=== PATIENT | female | born 1945 | race Caucasian/White ===

== ENCOUNTER 2017-03-27 14:42 | Observation (INO) | payer MEDICARE, OTHER ==
[2017-03-27] MEDS ORDERED: Nitrostat 0.4 MG (ED) SL ONE (15:17)
[2017-03-27] MEDS ORDERED: BABY ASPIRIN 81 MG CHEW PO ONE (15:17)
--- NOTE | 2017-03-27 15:20 | ERPHSYRPT ---
- History of Present Illness Time Seen by Provider: 03/27/17 15:00 Historian: patient Patient Subjective Stated Complaint: PT REPORTS ONSET OF UPPER BACK PAIN RADIATING TO SHOULDER CHEST ET JAW-DENIES SOB DENIES PHYSICAL EXTERSION Triage Nursing Assessment: PT PINK WARM ET [id number] EASY ET NONLABORED- SPEAKING IN COMPLETE SENTENCES Physician History: PATIENT WITH A HISTORY OF HYPERTENSION, FIBROMYALGIA AND RENAL INSUFFICIENCY COMPLAINS OF SEVERE SHARP PAINS BETWEEN SHOULDER BLADES PRIOR TO EMERGENCY ARRIVAL. STATES PAIN 7/10 SHARP IN CHARACTER RADIATES TO FRONT OF CHEST AND TO LEFT SHOULDER. DENIES DYSPNEA, DIAPHORESIS AND PALPITATIONS. Timing/Duration: today Activities at Onset: none Quality: sharpness, stabbing Location: back Chest Pain Radiation: jaw, arm Severity of Pain-Max: severe Severity of Pain-Current: mild Modifying Factors: Improves With: nothing Associated Symptoms: palpitations Prior Chest Pain/Cardiac Workup: no prior chest pain Nitro Today/Relief: 0.4 mg x 1, provided by ED Aspirin Treatment Today: 81 mg x 4, provided by ED Allergies/Adverse Reactions: morphine Allergy (Severe, Verified 03/27/17 14:43) STOPPED BREATHING Penicillins Allergy (Intermediate, Verified 03/27/17 14:43) Rash Sulfa (Sulfonamide Antibiotics) Allergy (Intermediate, Verified 03/27/17 14:43) Rash methylprednisolone [From Medrol] Adverse Reaction (Verified 03/27/17 14:43) Vomiting artificial sweetners Allergy (Intermediate, Uncoded 03/27/17 14:43) MIGRAINES Home Medications: Lisinopril 20 mg [Zestril 20 MG] 40 mg PO HS 10/02/14 [History] Mirtazapine 30 mg [Remeron 30 mg] 15 mg PO QHS 10/02/14 [History] Omeprazole 20 MG [Prilosec 20 mg] 20 mg PO HS 10/02/14 [History] Diphenhydramine HCl [Benadryl] 50 mg PO HS 10/03/14 [History] Hydrocodone/APAP 10/325 mg [Mulberry 10/325 MG Tablet] 1 tab PO Q4HPRN PRN [History] Potassium Chloride [Klor-Con M10] 10 meq PO HS 09/09/15 [History] Tizanidine HCl [Zanaflex] 4 mg PO TID 09/14/15 [History] Amlodipine Besylate [Norvasc] 5 mg PO DAILY 09/11/16 [History] Calcium [Hi-Barrera] 250 mg PO BID 09/11/16 [History] Fluticasone Propionate [Flonase NASAL] 50 mcg NS UD PRN 09/11/16 [History] Hydrochlorothiazide 12.5 mg PO DAILY 09/11/16 [History] Pregabalin [Lyrica] 75 mg PO BID 09/11/16 [History] Naproxen 500 mg [Naprosyn 500 MG] 500 mg PO BID 03/26/17 [History] Hx Tetanus, Diphtheria Vaccination/Date Given: Yes Hx Influenza Vaccination/Date Given: No Hx Pneumococcal Vaccination/Date Given: No Immunizations Up to Date: Yes - Review of Systems Constitutional: No Fever, No Chills Eyes: No Symptoms Ears, Nose, & Throat: No Symptoms Respiratory: No Symptoms, No Cough, No Dyspnea Cardiac: Chest Pain, No Edema, No Syncope Abdominal/Gastrointestinal: No Symptoms, No Abdominal Pain, No Nausea, No Vomiting, No Diarrhea Genitourinary Symptoms: No Symptoms, No Dysuria Musculoskeletal: No Symptoms, No Back Pain, No Neck Pain Skin: No Rash Neurological: No Dizziness, No Focal Weakness, No Sensory Changes Psychological: No Symptoms Endocrine: No Symptoms All Other Systems: Reviewed and Negative - Past Medical History Pertinent Past Medical History: Yes Neurological History: Migraines ENT History: No Pertinent History Cardiac History: Hypertension Respiratory History: No Pertinent History Endocrine Medical History: No Pertinent History Musculoskeletal History: Arthritis, Other GI Medical History: GERD History: No Pertinent History Psycho-Social History: No Pertinent History Female Reproductive Disorders: Uterine Cancer Other Medical History: 2back surgeries - Past Surgical History Past Surgical History: Yes Neuro Surgical History: No Pertinent History Cardiac: No Pertinent History Respiratory: No Pertinent History Gastrointestinal: No Pertinent History Genitourinary: No Pertinent History Musculoskeletal: Other Female Surgical History: Hysterectomy, Tubal Ligation Other Surgical History: back surgery x 2, carpel tunnel - Social History Smoking Status: Never smoker Exposure to second hand smoke: No Drug Use: none Patient Lives Alone: No - Female History Hx Now: No - Nursing Vital Signs Nursing Vital Signs: Initial Vital Signs Temperature 98.6 F 03/27/17 15:02 Pulse Rate 75 03/27/17 15:02 Respiratory Rate 20 03/27/17 15:02 Blood Pressure 132/92 03/27/17 15:02 O2 Sat by Pulse Oximetry 97 03/27/17 15:02 Pain Scale Pain Intensity 4 - Physical Exam General Appearance: no apparent distress, alert Eye Exam: PERRL/EOMI, eyes nml inspection Ears, Nose, Throat Exam: normal ENT inspection, moist mucous membranes Neck Exam: normal inspection, non-tender, supple, full range of motion Respiratory Exam: normal breath sounds, lungs clear, No respiratory distress Cardiovascular Exam: regular rate/rhythm, normal heart sounds Gastrointestinal/Abdomen Exam: soft, No tenderness, No mass Back Exam: normal inspection, No CVA tenderness, No vertebral tenderness Extremity Exam: normal inspection, normal range of motion Neurologic Exam: alert, oriented x 3, cooperative, normal mood/affect, sensation nml, No motor deficits Skin Exam: normal color, warm, dry SpO2 Interpretation: normal SpO2: 97 Oxygen Delivery: Room Air - Course EKG Interpreted by Me: RATE, NORMAL AXIS, Non-specific ST Changes (MINIMAL ANTERIOR SEPTAL NEW SINCE 10/05/2015, ), Other (REPEAT EKG NORMAL SINUS RHYTHM 1ST AVB WITH MINIMAL ST SEGMENT DEPRSSION) - CT Exams Chest CT Interpretation: Discussed w/radiologist (NO SUSPICIOUS PULMONARY MASS , INFILTRATE OR EFFUSION. AORTA IS MILDLY ARTERIOSCLEROTIC WITHOUT ANERYSYMAL DILATATION. THERE IS MINIMAL BILATERAL UPPER LOBE PULMONARY EMPHYSEMA, MILD BIBASILAR FIBROSIS/SCARRING) Ordered Tests: Active Orders 24 hr Category Date Time Status Up With Assistance ROUTINE Activity 03/27/17 18:42 Active Admission/Status Order ROUTINE Care 03/27/17 18:40 Active Call Admit Doctor for Orders ROUTINE Care 03/27/17 18:40 Active Photogrammetry Airplane Pilot STAT Care 03/27/17 15:18 Active Code Status Order ROUTINE Care 03/27/17 18:40 Active EKG-ER Only STAT Care 03/27/17 15:17 Active EKG-ER Only STAT Care 03/27/17 16:50 Active IV Care Q6H Care 03/27/17 18:40 Active IV Insertion STAT Care 03/27/17 15:17 Active Implement Chest Pain Pathway ROUTINE Care 03/27/17 18:40 Active Oxygen-ED Only NASAL CANNULA 2 lpm Care 03/27/17 15:17 Active Mauro Marr, Apply ROUTINE Care 03/27/17 18:40 Active Telemetry ROUTINE Care 03/27/17 18:40 Ordered Weight,Daily 0600 Care 03/27/17 18:40 Ordered Cardiac Diet Diet 03/27/17 Breakfast Active CHEST WITHOUT CONTRAST [CT] Stat Exams 03/27/17 15:18 Completed CBC W DIFF Stat Lab 03/27/17 15:00 Completed CMP Stat Lab 03/27/17 15:00 Completed LIPID PROFILE AM.LAB Lab 03/28/17 04:00 Ordered MAGNESIUM Stat Lab 03/27/17 15:00 Completed NT PRO BNP Stat Lab 03/27/17 15:00 Completed PROTIME WITH INR Stat Lab 03/27/17 15:00 Completed TROPONIN Q3H Lab 03/27/17 15:00 Completed TROPONIN Q3H Lab 03/27/17 18:25 Received TROPONIN Q3H Lab 03/27/17 21:30 Ordered TROPONIN Q3H Lab 03/28/17 00:30 Ordered TROPONIN Q3H Lab 03/28/17 03:30 Ordered EKG Q8HX2,QAMX3,PRN RT 03/27/17 18:40 Ordered Pulse Oximetry Q4H RT 03/27/17 18:40 Ordered Transfer Order Routine Transfer 03/27/17 Ordered Medication Summary Generic Name Dose Route Start Last Admin Trade Name Freq PRN Reason Stop Dose Admin Acetaminophen 650 mg 03/27/17 18:40 Tylenol 325 Mg PO 04/26/17 18:39 Q4H PRN PRN PAIN AND/OR FEVER Hydrocodone Bitart/Acetaminophen 1 tab 03/27/17 18:46 Mulberry 5/325 Mg PO 04/01/17 18:45 QID PRN PRN PAIN Al Hydrox/Mg Hydrox/Simethicone 30 ml 03/27/17 18:40 Maalox Es 30 Ml Unit Dose PO 04/26/17 18:39 Q4H PRN PRN INDIGESTION Amlodipine Besylate 5 mg 03/28/17 10:00 Norvasc 5 Mg PO 04/27/17 09:59 QAM MICHAEL Aspirin 325 mg 03/28/17 10:00 Ecotrin 325 Mg PO 04/27/17 09:59 DAILY MICHAEL Sodium Chloride 1,000 mls @ 100 mls/hr 03/27/17 15:30 03/27/17 16:26 Sodium Chloride 0.9% 1000 Ml IV 04/26/17 15:29 100 mls/hr .Q10H MICHAEL Administration Lisinopril 20 mg 03/28/17 10:00 Zestril 10 Mg PO 04/27/17 09:59 DAILY MICHAEL Magnesium Hydroxide 30 - 60 ml 03/27/17 18:40 Milk Of Magnesia 30 Ml PO 04/26/17 18:39 QDP PRN CONSTIPATION Morphine Sulfate 4 mg 03/27/17 18:40 Morphine Sulfate 2 Mg Inj IV 04/01/17 18:39 Q4H PRN PRN CHEST PAIN Discontinued Medications Generic Name Dose Route Start Last Admin Trade Name Freq PRN Reason Stop Dose Admin Aspirin 324 mg 03/27/17 15:17 03/27/17 16:27 Baby Aspirin 81 Mg Chew PO 03/27/17 15:18 324 mg STAT ONE Administration Nitroglycerin 0.4 mg 03/27/17 15:17 03/27/17 16:27 Nitrostat 0.4 Mg (Ed) SL 03/27/17 15:18 0.4 mg STAT ONE Administration Lab/Rad Data: Laboratory Result Diagrams 03/27/17 15:00 03/27/17 15:00 Laboratory Results 03/27/17 03/27/17 03/27/17 Range/Units 15:00 15:00 15:00 WBC (4.0-10.5) K/mm3 RBC (4.1-5.4) M/mm3 Hgb (12.0-16.0) gm/dl Hct (35-47) % MCV (78-100) fl MCH (26-32) pg MCHC (32-36) g/dl RDW (11.5-14.0) % Plt Count (150-450) K/mm3 MPV (6-9.5) fl Gran % (36.0-66.0) % Lymphocytes % (24.0-44.0) % Monocytes % (0.0-12.0) % Eosinophils % (0.00-5.0) % Basophils % (0.0-0.4) % Basophils # (0-0.4) INR 1.10 (0.8-3.0) Sodium 138 (136-145) mEq/L Potassium 3.9 (3.5-5.1) mEq/L Chloride 101 (98-107) mEq/L Carbon Dioxide 23.5 (21-32) mEq/L Anion Gap 17.0 H (5-15) MEQ/L BUN 44 H (9-20) mg/dL Creatinine 2.01 H (0.55-1.30) mg/dl Estimated GFR 26 ML/MIN Glucose 189 H (70-110) MG/DL Calcium 9.4 (8.5-10.1) mg/dL Magnesium 1.4 L (1.8-2.4) mg/dL Total Bilirubin 0.40 (0.2-1.0) mg/dL AST 20 (15-37) U/L ALT 15 (12-78) U/L Alkaline Phosphatase 69 (46-116) U/L Troponin I 0.037 (0.000-0.056) ng/ml NT-Pro-B Natriuret Pep 159 H (0-125) pg/ml Serum Total Protein 8.1 (6.4-8.2) gm/dL Albumin 4.1 (3.4-5.0) g/dL 03/27/17 Range/Units 15:00 WBC 10.4 (4.0-10.5) K/mm3 RBC 4.30 (4.1-5.4) M/mm3 Hgb 12.2 (12.0-16.0) gm/dl Hct 37.2 (35-47) % MCV 86.5 (78-100) fl MCH 28.4 (26-32) pg MCHC 32.8 (32-36) g/dl RDW 13.2 (11.5-14.0) % Plt Count 241 (150-450) K/mm3 MPV 11.1 H (6-9.5) fl Gran % 85.5 H (36.0-66.0) % Lymphocytes % 10.4 L (24.0-44.0) % Monocytes % 3.0 (0.0-12.0) % Eosinophils % 0.9 (0.00-5.0) % Basophils % 0.2 (0.0-0.4) % Basophils # 0.02 (0-0.4) INR (0.8-3.0) Sodium (136-145) mEq/L Potassium (3.5-5.1) mEq/L Chloride (98-107) mEq/L Carbon Dioxide (21-32) mEq/L Anion Gap (5-15) MEQ/L BUN (9-20) mg/dL Creatinine (0.55-1.30) mg/dl Estimated GFR ML/MIN Glucose (70-110) MG/DL Calcium (8.5-10.1) mg/dL Magnesium (1.8-2.4) mg/dL Total Bilirubin (0.2-1.0) mg/dL AST (15-37) U/L ALT (12-78) U/L Alkaline Phosphatase (46-116) U/L Troponin I (0.000-0.056) ng/ml NT-Pro-B Natriuret Pep (0-125) pg/ml Serum Total Protein (6.4-8.2) gm/dL Albumin (3.4-5.0) g/dL - Progress Progress: improved Progress Note: 03/27/17 18:34 PATIENT ADMINISTERED 4 BABY ASPIRIN , NTG 0.4MG SL, WITH IMPROVEMENT IN PAIN, 1 " NITROPASTE APPLIED TO ANTERIOR CHEST WALL Discussed with : Hiro (DISCUSSED WITH DR JUNE AT 1830 FOR OBS) - Departure Time of Disposition: 18:40 Departure Disposition: Observation Clinical Impression: ACUTE CHEST PAIN Condition: Stable Critical Care Time: No Referrals: EMILY MONCADA DO [Primary Care Provider] -
[2017-03-27] MEDS ORDERED: Sodium Chloride 0.9% 1000 ML 1,000 ML IV SCH (15:30)
[2017-03-27 15:37] LABS: BASOPHIL % 0.2 % (0.0-0.4); Basophil (Absolute #) 0.02 (0-0.4); Eosinophil % 0.9 % (0.00-5.0); Eosinophil (Absolute #) 0.09 (0-0.5); Granulocyte Absolute (ANC) 8.85 (1.4-6.9); Granulocytes % 85.5 % (36.0-66.0); Hematocrit 37.2 % (35-47); Hemoglobin 12.2 gm/dl (12.0-16.0); Lymphocyte (Absolute #) 1.08 (1.0-4.6); Lymphocytes % 10.4 % (24.0-44.0); Mean Cell Volume 86.5 fl (78-100); Mean Corpuscular Hemoglobin 28.4 pg (26-32); Mean Corpuscular Hgb Concent. 32.8 g/dl (32-36); Mean Platelet Volume 11.1 fl (6-9.5); Monocyte (Absolute #) 0.31 (0.0-1.3); Platelet Count 241 K/mm3 (150-450); Red Cell Distribution Width 13.2 % (11.5-14.0); White Blood Count 10.4 K/mm3 (4.0-10.5)
[2017-03-27 16:05] LABS: INR 1.1 (0.8-3.0)
[2017-03-27 16:22] LABS: ALBUMIN 4.1 g/dL (3.4-5.0); BILIRUBIN,TOTAL 0.4 mg/dL (0.2-1.0); Calcium 9.4 mg/dL (8.5-10.1); Carbon Dioxide 23.5 mEq/L (21-32); Creatinine 1 2.01 mg/dl (0.55-1.30); MAGNESIUM 1.4 mg/dL (1.8-2.4); Potassium 3.9 mEq/L (3.5-5.1); Total Protein 8.1 gm/dL (6.4-8.2)
[2017-03-27] MEDS ORDERED: Sodium Chloride 0.9% 1000 ML 1,000 ML ONE (16:24)
--- NOTE | 2017-03-27 16:58 | XRAY ---
Indication: Mid back pain. Multiple contiguous axial images obtained through the chest without contrast as ordered. Comparison: None Lungs demonstrate minimal bilateral upper lobe pulmonary emphysema, mild bibasilar fibrosis/scarring, and left posterior gutter calcified granuloma. No suspicious pulmonary mass, infiltrate, or effusion. Heart is not enlarged. Aorta is mildly arteriosclerotic without aneurysmal dilatation. No pathologic mediastinal lymphadenopathy. Small hiatal hernia. Bony thorax intact with mild degenerative changes throughout the spine. Limited upper abdomen demonstrates 1.6 cm left adrenal adenoma, colonic diverticulosis, and tiny calcified splenic granulomas. Impression: 1. Pulmonary emphysema and fibrosis/scarring as detailed. 2. No acute cardiopulmonary abnormalities on this noncontrast exam. 3. Incidental small hiatal hernia, left adrenal adenoma, colonic diverticulosis, and evidence for old granulomatous disease. CTDI 17.77
[2017-03-27] MEDS ORDERED: MORPHINE SULFATE 2 MG INJ IV PRN (18:40)
[2017-03-27] MEDS ORDERED: Senokot-S Tablet PO PRN (18:40)
[2017-03-27] MEDS ORDERED: MAALOX ES 30 ML UNIT DOSE PO PRN (18:40)
[2017-03-27] MEDS ORDERED: TYLENOL 325 MG PO PRN (18:40)
[2017-03-27] MEDS ORDERED: MILK OF MAGNESIA 30 ML PO PRN (18:40)
[2017-03-27] MEDS ORDERED: Zofran 4 MG/2 ML VIAL IV PRN (18:40)
[2017-03-27] MEDS ORDERED: NORCO 5/325 MG PO PRN (18:46)
[2017-03-27 18:47] VITALS: O2SAT 97
[2017-03-27] MEDS ORDERED: Norco 10/325 MG Tablet PO PRN (21:20)
[2017-03-27] MEDS ORDERED: NITRO-BID 2% UD PACKETS ONE (21:40)
[2017-03-27] MEDS ORDERED: Zestril 20 MG ONE (21:42)
[2017-03-27] MEDS ORDERED: REMERON 30 MG PO SCH (22:00)
[2017-03-27] MEDS ORDERED: Zestril 20 MG PO SCH (22:00)
[2017-03-27] MEDS ORDERED: NITRO-BID 2% UD PACKETS TOP SCH (22:00)
[2017-03-27] MEDS ORDERED: Nitrostat 0.4 MG Tablet SL ONE (23:01)
[2017-03-27] MEDS: Nitrostat 0.4 MG Tablet SL PRN ×2 (23:03→23:10)
[2017-03-27 23:11] VITALS: PULSE 95
[2017-03-27] MEDS ORDERED: DILAUDID 2 MG INJECTION IV STA (23:39)
[2017-03-28 01:54] VITALS: BP 148/74
[2017-03-28] MEDS ORDERED: Ecotrin 325 MG PO SCH (10:00)
[2017-03-28] MEDS ORDERED: Zestril 10 MG PO SCH (10:00)
[2017-03-28] MEDS ORDERED: NORVASC 5 MG PO SCH (10:00)
== END 2017-03-27 23:40 | disposition home or self-care (01) ==
LOC: ED 14:42 → MED SURG 19:57
PROVIDERS: ADMIT Family Medicine; ATTEND Family Medicine
DX: R07.9 Chest pain, unspecified (principal); I10 Essential (primary) hypertension; K21.9 Gastro-esophageal reflux disease without esophagitis; Z79.899 Other long term (current) drug therapy; M79.7 Fibromyalgia; N28.9 Disorder of kidney and ureter, unspecified
CPT/HCPCS: 36000; 36415; 71250; 80053; 83735; 83880; 84484; 85025; 85610; 93005; 93041; 93268; 96360; 96361; 96374; 99285; G0378; J1170; A9270-GY

== ENCOUNTER 2018-11-04 11:43 | Day surgery (SDC) | payer MEDICARE ==
[~2018-11-04 11:43] MED LIST: Ak-Dilate OPHTHALMIC*** 1.065 ML, Cyclogyl 1% OPHTH SOL 5 ML 1.065 ML, GATIFLOXACIN 0.5... OP ONE; BETADINE 5% OPHTHALMIC 30 ML OP ONE; BSS 500 ML, Fortaz/Tazicef 1 GM** 0.2 G IO ONE; Epinephrine Preservative Free 1 MG/ML INTRAOP ONE; LIDOCAINE HCL 1% AMPUL 5 ML IJ ONE; Lactated Ringers 1,000 ML IV ONE; Lactated Ringers 1,000 ML IV SCH; TETRACAINE 0.5% STERI-UNIT SOL OP ONE; Zofran 4 MG/2 ML VIAL IV PRN
[2018-11-04] MEDS ORDERED: DIPRIVAN 200 MG/20 ML IV ONE (14:28)
--- NOTE | 2018-11-04 16:01 | OP ---
DATE/TIME OF OPERATION: 11/04/2018 1417 TIME DICTATED: 1442 PREOPERATIVE DIAGNOSIS: Senile cataract of left eye. POSTOPERATIVE DIAGNOSIS: Senile cataract of left eye. SURGEON: Mark Severino MD DEMURRAGE MAN: None. OPERATION: Cataract extraction of left eye with an intraocular lens implant. STANDARD __X___ COMPLEX ANESTHESIA: MAC. ___X___ Monitored anesthesia care in combination with topical and intra-cameral anesthesia (because of the established specific risk of reflux, arrhythmias, or an anxiety attack associated with ocular manipulation as well as difficulty of the systems consultant to manage such potentially catastrophic events while simultaneously attempting to complete the surgical procedure, it was deemed necessary for the patient's safety to have an anesthesiologist or a nurse press operator automatic present during the procedure whenever possible. The anesthesiologist or the nurse press operator automatic was utilized to monitor and regulate the intravenous sedation of the patient, so the patient was cooperative, relaxed, and comfortable). Topical anesthesia using Tetracaine eye drops together with intra cameral anesthesia using Lidocaine 1% MPF. The nurse was utilized to monitor the patient. ANESTHESIA PROVIDER: Marv Gilbert CRNA. COMPLICATIONS: None. BLOOD LOSS: None. INDICATIONS: The patient is undergoing cataract surgery in the hopes of eliminating the visual complaints and difficulty. PROCEDURE: After arriving at the facility's outpatient surgery area, an IV was started; the patient was given 5 mg of p.o. Versed. (If an anesthesia provider was not monitoring the patient) The patient was then given topical anesthetic Tetracaine eye drops. A cotton pellet was soaked into a solution of a combination of Zymaxid 0.5%, Jarad-Synephrine 2.5% and Ocufen (other drops might have been substituted referenced in the patient's record). The pellet was inserted by the RN into the lower conjunctival cul-de-sac with a sterile forceps and left for 20 minutes. The pellet was then removed by the RN with a sterile forceps before taking the patient to the operating room. The preoperative area nurse identified the patient and marked the correct eye to be operated on. I identified the correct eye to be operated on and marked it appropriately in the outpatient surgery area. The patient was then taken into the operating room. Tetracaine eye drops were installed again in the correct eye. The eyelids and the lashes and the lid margins were scrubbed with Betadine solution. One drop of the diluted Betadine solution was placed in the conjunctival cul-de-sac for 45 seconds and then was irrigated. A drop of Tetracaine Gel was placed in the conjunctival cul-de-sac. The patient's forehead was taped to secure it during the procedure. The patient was monitored. The patient was then draped in the usual way for this procedure. An eye speculum was used to separate the eyelids. The eye was then fixated and a temporal 2.5 mm incision was made in the clear cornea temporally at the limbus. Through the incision, 0.25 cc of 1% non-preserved lidocaine was injected into the anterior chamber for intracameral anesthesia. The anterior chamber was then filled with viscoelastic. The pupil was small. I felt that it would be safer to mechanically dilate the pupil. A Malyugin ring was used at this point which dilated the pupil. That was removed at the end of the procedure prior to aspiration of the viscoelastic from the anterior chamber and posterior to the intraocular lens implant. The cataract had a great amount of cortical changes. That rendered seeing the anterior capsule difficult for a safe performance of an anterior capsulotomy. I injected an air bubble into the anterior chamber. I then injected 1 ML of vision blue solution into the anterior chamber. The vision blue solution was irrigated from the anterior chamber after 30 seconds. The anterior capsule was stained which facilitated performing the anterior capsulotomy safely. After that was completed, a cystotome was introduced into the anterior chamber and a round anterior capsulotomy was performed. The capsule was removed by a forceps. Hydrodissection was next carried utilizing a 25-gauge cannula and balanced salt solution to delineate the cortical material from the capsule and the nucleus from the cortical material. The nucleus was rotated freely into the capsular bag with no difficulty. The phaco tip of the [employer] Phacoemulsifier was introduced into the anterior chamber and two grooves were made into the nucleus 90 degrees apart. Using two spatulas resulted into the nucleus being fractured into four quadrants. The phaco tip was then used to remove each quadrant of the nucleus. Viscoelastic was used during this process to protect the corneal endothelium. Once the entire nucleus was removed, the phaco tip then was removed and the irrigation tip was introduced into the eye and the cortex was removed. The posterior capsule was polished. It was noticed that there was a tear into the posterior capsule with few vitreous strands into the pupil plan. An anterior vitrectomy was performed. A 23.50 diopter, [id number], posterior chamber lens implant, was inspected and found to be grossly normal. The implant was inserted into the implant injector cartridge; Viscoelastic again was introduced into the anterior chamber, which filled the capsular bag. The implant injector's cartridge tip was placed at the limbal wound and the posterior chamber implant was released into the capsular bag and rotated appropriately. The implant was found to be into the capsular bag and it was centered. 0.2 ml of Tri-Moxi was introduced via 27 gauge cannula into the vitreous cavity through the ciliary processes. Viscoelastic was aspirated from the anterior chamber and posterior to the intraocular lens implant from the capsular bag using the irrigating tip. The anterior chamber was irrigated and filled with 5 cc antibiotic solution (500 cc of BSS plus 2 ml of Fortaz 100 mg/ml) ( if patient was not allergic to the medication). The lips of the corneal incision were hydrated using BSS solution. The anterior chamber was checked and found to be water tight. ___X___ One drop each of antibiotic, steroid and NSAID drops (refer to chart for drops used) were placed in the conjunctival cul-de-sac of the operated eye. Patient tolerated the procedure quite well and left the operating room in satisfactory condition. DISCHARGE SUMMARY: The patient was released in stable condition. The patient and those with the patient were given an instruction sheet as of how to care for the eye after surgery as well as counseling on any abnormal laboratory studies by the postoperative RN. The patient was also given an appointment card for follow-up in the office and is to call immediately for any difficulties including but not limited to pain in the eye, decreased vision, discharge from the eye, headache and or fever. DISCHARGE DIAGNOSIS: Pseudophakia of left eye.
[2018-11-04 16:03] VITALS: BP 136/64; PULSE 68; O2SAT 98
== END 2018-11-04 15:45 | disposition home or self-care (01) ==
LOC: SDC 11:43
PROVIDERS: ATTEND Ophthalmology
DX: H25.812 Combined forms of age-related cataract, left eye (principal); J44.9 Chronic obstructive pulmonary disease, unspecified; I51.9 Heart disease, unspecified; N28.9 Disorder of kidney and ureter, unspecified; G62.9 Polyneuropathy, unspecified; Z79.899 Other long term (current) drug therapy
CPT/HCPCS: 99100; C1780; J0171; J2704; A9270-GY

== ENCOUNTER 2018-12-02 10:58 | Day surgery (SDC) | payer MEDICARE ==
[~2018-12-02 10:58] MED LIST changes: -BSS 500 ML, Fortaz/Tazicef 1 GM** 0.2 G IO ONE
[2018-12-02] MEDS ORDERED: DIPRIVAN 200 MG/20 ML IV ONE (12:42)
[2018-12-02] MEDS ORDERED: SUBLIMAZE 100 MCG/2 ML ONE (12:51)
[2018-12-02 13:35] VITALS: O2SAT 96
[2018-12-02 13:49] VITALS: BP 140/88; PULSE 71
--- NOTE | 2018-12-03 07:56 | OP ---
DATE/TIME OF OPERATION: 12/02/2018 1244 TIME DICTATED: 1437 PREOPERATIVE DIAGNOSIS: Senile cataract of right eye. POSTOPERATIVE DIAGNOSIS: Senile cataract of right eye. SURGEON: Mark Severino MD ANESTHESIOLOGIST AND CRITICAL CARE: None. OPERATION: Cataract extraction of right eye with an intraocular lens implant. STANDARD __X__ COMPLEX ____ ANESTHESIA: MAC. ___X__ Monitored anesthesia care in combination with topical and intra-cameral anesthesia (because of the established specific risk of reflux, arrhythmias, or an anxiety attack associated with ocular manipulation as well as difficulty of the secret code expert to manage such potentially catastrophic events while simultaneously attempting to complete the surgical procedure, it was deemed necessary for the patient's safety to have an anesthesiologist or a nurse resident services coordinator present during the procedure whenever possible. The anesthesiologist or the nurse resident services coordinator was utilized to monitor and regulate the intravenous sedation of the patient, so the patient was cooperative, relaxed, and comfortable). Topical anesthesia using Tetracaine eye drops together with intra cameral anesthesia using Lidocaine 1% MPF. The nurse was utilized to monitor the patient. ANESTHESIA PROVIDER: Marv Gilbert CRNA. COMPLICATIONS: None. BLOOD LOSS: None. INDICATIONS: The patient is undergoing cataract surgery in the hopes of eliminating the visual complaints and difficulty. PROCEDURE: After arriving at the facility's outpatient surgery area, an IV was started; the patient was given 5 mg of p.o. Versed. (If an anesthesia provider was not monitoring the patient) The patient was then given topical anesthetic Tetracaine eye drops. A cotton pellet was soaked into a solution of a combination of Zymaxid 0.5%, Jarad-Synephrine 2.5% and Ocufen (other drops might have been substituted referenced in the patient's record). The pellet was inserted by the RN into the lower conjunctival cul-de-sac with a sterile forceps and left for 20 minutes. The pellet was then removed by the RN with a sterile forceps before taking the patient to the operating room. The preoperative area nurse identified the patient and marked the correct eye to be operated on. I identified the correct eye to be operated on and marked it appropriately in the outpatient surgery area. The patient was then taken into the operating room. Tetracaine eye drops were installed again in the correct eye. The eyelids and the lashes and the lid margins were scrubbed with Betadine solution. One drop of the diluted Betadine solution was placed in the conjunctival cul-de-sac for 45 seconds and then was irrigated. A drop of Tetracaine Gel was placed in the conjunctival cul-de-sac. The patient's forehead was taped to secure it during the procedure. The patient was monitored. The patient was then draped in the usual way for this procedure. An eye speculum was used to separate the eyelids. The eye was then fixated and a temporal 2.5 mm incision was made in the clear cornea temporally at the limbus. Through the incision, 0.25 cc of 1% non-preserved lidocaine was injected into the anterior chamber for intracameral anesthesia. The anterior chamber was then filled with viscoelastic. The pupil was small. I felt that it would be safer to mechanically dilate the pupil. A Malyugin ring was used at this point which dilated the pupil. That was removed at the end of the procedure prior to aspiration of the viscoelastic from the anterior chamber and posterior to the intraocular lens implant. The cataract had a great amount of cortical changes. That rendered seeing the anterior capsule difficult for a safe performance of an anterior capsulotomy. I injected an air bubble into the anterior chamber. I then injected 1 ML of vision blue solution into the anterior chamber. The vision blue solution was irrigated from the anterior chamber after 30 seconds. The anterior capsule was stained which facilitated performing the anterior capsulotomy safely. After that was completed, a cystotome was introduced into the anterior chamber and a round anterior capsulotomy was performed. The capsule was removed by a forceps. Hydrodissection was next carried utilizing a 25-gauge cannula and balanced salt solution to delineate the cortical material from the capsule and the nucleus from the cortical material. The nucleus was rotated freely into the capsular bag with no difficulty. The phaco tip of the [facility] Phacoemulsifier was introduced into the anterior chamber and two grooves were made into the nucleus 90 degrees apart. Using two spatulas resulted into the nucleus being fractured into four quadrants. The phaco tip was then used to remove each quadrant of the nucleus. Viscoelastic was used during this process to protect the corneal endothelium. Once the entire nucleus was removed, the phaco tip then was removed and the irrigation tip was introduced into the eye and the cortex was removed. The posterior capsule was polished. It was noticed that there was a tear into the posterior capsule with few vitreous strands into the pupil plan. An anterior vitrectomy was performed. A 23.00 diopter, [id number], posterior chamber lens implant, was inspected and found to be grossly normal. The implant was inserted into the implant injector cartridge; Viscoelastic again was introduced into the anterior chamber, which filled the capsular bag. The implant injector's cartridge tip was placed at the limbal wound and the posterior chamber implant was released into the capsular bag and rotated appropriately. The implant was found to be into the capsular bag and it was centered. 0.2 ml of Tri-Moxi was introduced via 27 gauge cannula into the vitreous cavity through the ciliary processes. Viscoelastic was aspirated from the anterior chamber and posterior to the intraocular lens implant from the capsular bag using the irrigating tip. The anterior chamber was irrigated and filled with 5 cc antibiotic solution (500 cc of BSS plus 2 ml of Fortaz 100 mg/ml) ( if patient was not allergic to the medication). The lips of the corneal incision were hydrated using BSS solution. The anterior chamber was checked and found to be water tight. ___X__ One drop each of antibiotic, steroid and NSAID drops (refer to chart for drops used) were placed in the conjunctival cul-de-sac of the operated eye. Patient tolerated the procedure quite well and left the operating room in satisfactory condition. DISCHARGE SUMMARY: The patient was released in stable condition. The patient and those with the patient were given an instruction sheet as of how to care for the eye after surgery as well as counseling on any abnormal laboratory studies by the postoperative RN. The patient was also given an appointment card for follow-up in the office and is to call immediately for any difficulties including but not limited to pain in the eye, decreased vision, discharge from the eye, headache and or fever. DISCHARGE DIAGNOSIS: Pseudophakia of right eye.
== END 2018-12-02 13:55 | disposition home or self-care (01) ==
LOC: SDC 10:58
PROVIDERS: ATTEND Ophthalmology
DX: H25.811 Combined forms of age-related cataract, right eye (principal); I51.9 Heart disease, unspecified; J44.9 Chronic obstructive pulmonary disease, unspecified; N28.9 Disorder of kidney and ureter, unspecified; G62.9 Polyneuropathy, unspecified; K21.9 Gastro-esophageal reflux disease without esophagitis; Z79.899 Other long term (current) drug therapy
CPT/HCPCS: 99100; C1780; J0171; J2704; J3010; A9270-GY

== ENCOUNTER 2021-12-12 09:50 | Day surgery (SDC) | payer MEDICARE ==
[2021-12-12 10:30] VITALS: O2SAT 92
[2021-12-12] MEDS ORDERED: CLINDAMYCIN-D5W 900 MG/50 ML*** 900 MG/50 ML BAG IV SCH (10:30)
[2021-12-12] MEDS ORDERED: Lactated Ringers 1,000 ML IV SCH (10:30)
[2021-12-12] MEDS ORDERED: CLINDAMYCIN-D5W 900 MG/50 ML*** 900 MG/50 ML BAG IV ONE (10:32)
[2021-12-12] MEDS ORDERED: Lactated Ringers 1,000 ML IV ONE ×2 (10:33→12:52)
[2021-12-12] MEDS ORDERED: Decadron 4 MG INJ ONE (11:47)
[2021-12-12] MEDS ORDERED: Xylocaine-Mpf 2% 5 Ml Vial ONE (11:47)
[2021-12-12] MEDS ORDERED: Zofran 4 MG/2 ML VIAL ONE (11:47)
[2021-12-12] MEDS ORDERED: DIPRIVAN 200 MG/20 ML IV ONE (11:47)
[2021-12-12] MEDS ORDERED: SUBLIMAZE 100 MCG/2 ML ONE (11:48)
[2021-12-12] MEDS ORDERED: Zemuron 100 MG/10 ML ONE (11:57)
[2021-12-12] MEDS ORDERED: XYLOCAINE 1% HCL 20 ML MDV ONE (11:59)
[2021-12-12] MEDS ORDERED: BRIDION 200MG/2ML IV ONE (12:44)
--- NOTE | 2021-12-12 13:21 | XRAY ---
Indication: ORIF left 5th metatarsal fracture. Intraoperative fluoroscopy provided for 1 minute 2 seconds. 14 digital spot images submitted for interpretation ultimately demonstrates orthopedic plate/screws fixating 5th metatarsal shaft fracture in good apposition/alignment. Correlate with intraoperative findings/report.
[2021-12-12 14:28] VITALS: BP 125/82; PULSE 76
--- NOTE | 2021-12-12 16:43 | XRAY ---
1 minute and 2 seconds fluoroscopy time in surgery for repair of 5th MT fracture of the left foot.
--- NOTE | 2021-12-13 10:00 | OP ---
SURGERY DATE: 12/12/2021 1157 PREOPERATIVE DIAGNOSES: 1) Fifth metatarsal fracture with delayed union left foot. 2) Left foot pain. POSTOPERATIVE DIAGNOSES: 1) Fifth metatarsal fracture with delayed union left foot. 2) Left foot pain. PROCEDURE: Open reduction internal fixation of fifth metatarsal fracture left foot. SURGEON: Rajat Stringer DPM. FRONT DESK ADMINISTRATOR: None. ANESTHESIA: General plus a postoperative local injection ankle block. HEMOSTASIS: Ankle tourniquet set to 250 mm of Mercury for 28 total tourniquet minutes. ESTIMATED BLOOD LOSS: Less than 5 cc. MATERIALS: 4-0 Monocryl, 3-0 Nylon, ALPS Denny 2.5 straight plate with 2.5 x 12 mm x2 interfragmentary screws. INJECTABLES: A 1:1 mixture of 1% lidocaine plain and 0.5% Marcaine plain injected in ankle block type fashion 30 cc total. INDICATION FOR SURGERY: Amada is a very pleasant 76-year-old female known to my service for a fifth metatarsal fracture that occurred approximately six weeks ago. The patient was seen one week following the injury demonstrating to have a fifth metatarsal fracture. The patient was given five weeks and during this time there was no indication of callous formation between the bone fragments. At this time was in a significant amount of pain and wished for something to be done. The patient was advised that there was a potential that this would be potential delayed union rather a nonunion. However, the patient's pain was out of proportion and she was unable to bear weight comfortably. She must remain independent and for that reason the patient wished to proceed with surgical intervention. She understands all risks, complications and benefits of the surgical intervention at this time including but not limited to infection, hematoma, seroma, possibility of delayed bone healing, nonbone healing, possibility of hardware failure and possibility of subsequent surgery at a later date. No guarantees were provided as to the outcome. The patient understands these risks and wishes to proceed. Plenty of time was allowed for questions to be asked which were answered to the patient's apparent satisfaction. It is with that we proceed. DESCRIPTION OF PROCEDURE AND FINDINGS: The patient was brought into the OR and placed onto the OR table in the supine position. At this time general anesthesia was administered. A well-padded ankle tourniquet was applied to the patient's left foot. The tourniquet was set to 250 mm of Mercury. The left lower extremity was prepped and draped in the typical sterile fashion and lowered onto the surgical field. At this time under fluoroscopic guidance a [place] was utilized to plan for incision at the dorsolateral aspect of the surgical site. Esmarch was utilized to exsanguinate the foot and the tourniquet inflated at this time. A 15 blade was utilized to make a skin incision. The incision was deepened being careful not to damage any neurovascular structures along the way retracting any neurovascular or tendon structures that were encountered in the surgical field. At this time the fracture was identified and under fluoroscopic guidance, a lobster claw was utilized to clamp the fragment in near anatomical position. At this time two interfragmentary screws were introduced from a dorsolateral to plantar medial aspect utilizing a 2.5 x 12 mm screws at the proximal and distal aspect of the fracture site. At this time a 2.5 mm straight plate was introduced and a combination of nonlocking and locking screws were utilized to stabilize the fracture. Following this copious amounts of sterile saline were utilized to flush the surgical site. A closure consisting of 4-0 Monocryl in a simple buried-type fashion was performed and a 3-0 Nylon was utilized in a horizontal mattress to coapt skin edges in an everted type fashion. The patient then had a dressing consisting of Betadine, Adaptic, 4x4's, Kerlix and DELVIN. The patient was reversed from the anesthesia with vital signs stable and vascular status intact. The patient was returned to the postoperative anesthesia care unit and handled the anesthesia as well as the procedure without significant complication. Postoperative orders as indicated in the patient's discharge chart.
== END 2021-12-12 14:33 | disposition home or self-care (01) ==
LOC: SDC 09:50
PROVIDERS: ATTEND Podiatrist Foot & Ankle Surgery
DX: S92.352A Displaced fracture of fifth metatarsal bone, left foot, initial encounter for closed fracture (principal); M79.672 Pain in left foot
CPT/HCPCS: 28485; 73630; 76000; C1713; J1100; J2405; J2704; J3010